=== PATIENT | female | born 1960 | race Caucasian/White ===

== ENCOUNTER 2016-06-05 11:50 | Inpatient (IN) | payer OTHER ==
[~2016-06-05] VITALS: Ht 149.9 cm; Wt 99.9 kg
[~2016-06-05 11:50] MED LIST: ACIPHEX20 MG PO; ALDACTONE100 MG PO; ALUM-MAG HYDRO360 ML PO; AMLODIPINE BES2.5 MG PO; ATORVASTATIN CA40 MG PO; Aldactone PO; CEFDINIR300 MG PO; CEFTIN500 MG PO; CEPHALEXIN500 M1 PO; CLEOCIN300 MG PO; CLINDAMYCIN HC150 MG PO; COL-RITE100 M1 PO; COLACE10 MG/ML PO; CONSTULOSE10 GM/15 M PO; Chronulac,Cephulac,E PO; Chronulac,Cephulac,Enulose 20 gm/30 ml PO; DAILY VITAMIN1 EAC5 PO; DOCU LIQUI50 MG/5 ML PO; DuoNeb IH; ENULOSE10 GM/15 M PO; ERGOCALCIF50000 UNIT PO; FEOSOL325 MG PO; FERROUS SULFAT325 MG PO; FLORASTOR250 MG PO; FUROSEMIDE40 MG PO; GABAPENTIN300 MG PO; GENERLAC10 GM/15 M PO; GLUCO BURST37.5 GM PO; GLUCOSE GEL15 GM PO; HUMALOG100 UNIT/1 SC; HYDROCHLOROTHIA25 MG PO; HYDROCODONE PO; K-DUR20 MEQ PO; KLOR-CON20 MEQ PO; LACTULOSE10 GM/151 PO; LANTUS 10100 UNITS/ SC; LANTUS 3 M100 UNITS1 SC; LANTUS100 UNIT/2 SQ; LASIX20 MG PO; LASIX40 MG PO; LEVEMIR FL100 UNIT/1 SC; LEVOTHROID50 MCG PO; LEVOTHYROXINE125 MCG PO; LEVOTHYROXINE25 MCG PO; LIPITOR40 MG PO; LISINOPRIL5 MG PO; LYRICA50 MG PO; Lasix PO; Lipitor PO; METFORMIN HCL500 MG PO; NAPROXEN250 M1 PO; NORVASC2.5 MG PO; NOVOLOG 10100 UNITS/ SC; NOVOLOG PE100 UNITS/ SC; NYSTATIN-TRIAMC15 GM TP; OXAYDO5 MG PO; PANTOPRAZOLE SO40 MG PO; PHENERGAN25 MG PR; POTASSIUM CHLO20 ME1 PO; PROAIR HFA8.5 GM IH; PROMETHAZINE HC25 M1 PO; PROTONIX40 MG PO; Protonix PO; SILVADENE20 GM TP; SIMVASTATIN5 MG PO; SODIUM CHLORIDE1 G1 PO; SORE THROAT SP177 M1 MM; SPIRONOLACTONE100 MG PO; SPIRONOLACTONE50 MG PO; SYNTHROID100 MCG PO; SYNTHROID125 MCG PO; TRAMADOL HCL50 MG PO; TUMS500 MG PO; TYLENOL REGULA325 MG PO; Ultram PO; VICTOZA 2-0.6 MG/0.1 SC; VITAMIN D250000 UNIT PO; XIFAXAN550 MG PO; Xifaxan PO; ZESTRIL,PRINIVI10 MG PO; ZOCOR40 MG PO; Zeasorb Antifungal T TP; Zestril,Prinivil PO
[2016-06-05 12:44] LABS: MCH 36.1 PG (29.0-34.0); MCHC 35.3 G/DL (30.0-36.0); MCV 102.3 FL (83-99); MEAN PLAT.VOLUME 9.9 uM^3 (9.5-12.4); PLATELET COUNT 106 K/uL (156-360); RBC DIS.WIDTH-CV 15.7 % (11.8-14.6); RBC DIS.WIDTH-SD 57.3 % (39-53); RED BLOOD COUNT 3.52 M/uL (3.80-5.20); WHITE BLOOD COUNT 3.2 K/uL (4.1-10.2)
[2016-06-05 12:56] LABS: CHLORIDE 104 mEq/L (99-109); POTASSIUM 4.6 mEq/L (3.7-5.4); SODIUM 135 mEq/L (136-147)
[2016-06-05 12:57] LABS: GLUCOSE 127 mg/dL (70-99)
[2016-06-05 12:59] LABS: ANION GAP 9 MEQ/L (2-14)
[2016-06-05 13:01] LABS: GFR ESTIMATE (CALCULATED) 41 mL/min/
[2016-06-05 13:02] LABS: UREA NITROGEN (BUN) 14 mg/dL (9-23)
[2016-06-05 13:09] LABS: QUANTITATIVE HCG < 4.0 MIU/ML
[2016-06-05 13:14] LABS: TROP-I INTERPRETATION NEGATIVE; TROPONIN-I < 0.01 ng/mL (0.0-0.30)
[2016-06-05] MEDS ORDERED: VITAMIN A DAY1 EACH PO (14:43)
[2016-06-05] MEDS ORDERED: LACTULOSE10 GM/151 PO (14:47)
[2016-06-05] MEDS ORDERED: NYSTATIN100000 UN1 PO (14:49)
[2016-06-05] MEDS ORDERED: GLUCOSE GEL15 GM PO (14:58)
[2016-06-05 17:55] LABS: ADD MIUA? YES; BILIRUBIN NEGATIVE; BLOOD TRACE; COLOR DK YELLOW ((YELLOW)); GLUCOSE (STRIP) NEGATIVE; KETONES NEGATIVE; LEUKOCYTES SMALL; NITRITE NEGATIVE; PROTEIN (STRIP) NEGATIVE; SPECIFIC GRAVITY 1.021 (1.000-1.030); UROBILINOGEN 0.2 MG/DL (0.2-1.0)
[2016-06-05 18:12] LABS: BACTERIA 2+; CASTS NONE SEEN /LPF; CRYSTALS NONE SEEN; EPITHELIAL CELLS 1+; MUCUS NONE SEEN; RED BLOOD CELLS RARE /HPF (0-5); UCUL ADDED? NO; WHITE BLOOD CELLS RARE /HPF (0-5)
[2016-06-05 21:24] VITALS: BP 128/69
[2016-06-05 23:34] VITALS: BP 137/69
[2016-06-06 04:23] VITALS: BP 146/87
[2016-06-06 07:52] VITALS: BP 117/58
[2016-06-06 11:50] LABS: POINT-OF-CARE METER ID UU13113725
[2016-06-06 14:35] LABS: ALKALINE PHOSPHATASE 298 IU/L (3-129); ANION GAP 10 MEQ/L (2-14); CHLORIDE 100 MEQ/L (99-109); GFR ESTIMATE (CALCULATED) 45 mL/min/; GLUCOSE 101 mg/dL (70-99); IRON 149 MCG/DL (35-150); POTASSIUM 4.7 MEQ/L (3.7-5.4); SAMPLE HEMOLYSIS CHECK 0; SAMPLE ICTERIC CHECK 1; SAMPLE LIPEMIA CHECK 0; SODIUM 134 MEQ/L (136-147); TOTAL BILIRUBIN 4.9 MG/DL (0.0-1.0); UREA NITROGEN (BUN) 15 mg/dL (9-23)
[2016-06-06 14:44] LABS: EOSINOPHIL COUNT 0.1 K/uL (0-0.3); HEMATOCRIT 33.7 % (36.0-46.0); IMMATURE GRANULOCYTE (%) 0.9 % (0.0-0.7); LYMPHOCYTE COUNT 0.5 K/uL (1.0-2.8); MCH 35.9 PG (29.0-34.0); MCV 102.4 FL (83-99); MEAN PLAT.VOLUME 10.8 uM^3 (9.5-12.4); MONOCYTE (%) 9.4 % (3-12); MONOCYTE COUNT 0.2 K/uL (0-0.8); NEUTROPHIL (%) 64.7 % (45-76); NEUTROPHIL COUNT 1.5 K/uL (1.8-6.4); NRBC (%) 0.9 /100 WBC (0-0); PLATELET COUNT 132 K/uL (156-360); RBC DIS.WIDTH-SD 60.1 % (39-53); RED BLOOD COUNT 3.29 M/uL (3.80-5.20); WHITE BLOOD COUNT 2.2 K/uL (4.1-10.2)
[2016-06-06 14:48] LABS: AMYLASE 16 IU/L (1-118); LIPASE 17 U/L (1.0-51.0)
[2016-06-06 14:53] LABS: FERRITIN 274 NG/ML (10-291)
[2016-06-06 16:03] VITALS: BP 138/65
[2016-06-06 23:28] VITALS: BP 113/59
[2016-06-07 06:08] LABS: POINT-OF-CARE METER ID UU13113725
[2016-06-07 07:18] VITALS: BP 123/59
[2016-06-07 09:43] LABS: HEMATOCRIT 31.9 % (36.0-46.0); MCH 35.5 PG (29.0-34.0); MCHC 34.8 G/DL (30.0-36.0); MCV 101.9 FL (83-99); MEAN PLAT.VOLUME 10.2 uM^3 (9.5-12.4); PLATELET COUNT 110 K/uL (156-360); RBC DIS.WIDTH-CV 15.8 % (11.8-14.6); RBC DIS.WIDTH-SD 59.2 % (39-53); RED BLOOD COUNT 3.13 M/uL (3.80-5.20)
[2016-06-07 10:34] LABS: ALKALINE PHOSPHATASE 277 IU/L (3-129); ANION GAP 7 MEQ/L (2-14); CHLORIDE 101 MEQ/L (99-109); GFR ESTIMATE (CALCULATED) 41 mL/min/; GLUCOSE 80 mg/dL (70-99); POTASSIUM 4.2 MEQ/L (3.7-5.4); SAMPLE HEMOLYSIS CHECK 0; SAMPLE ICTERIC CHECK 1; SAMPLE LIPEMIA CHECK 0; SODIUM 133 MEQ/L (136-147); UREA NITROGEN (BUN) 17 mg/dL (9-23)
[2016-06-07 10:36] LABS: TOTAL BILIRUBIN 3.6 MG/DL (0.0-1.0)
[2016-06-07 11:56] LABS: POINT-OF-CARE METER ID UU13113725
[2016-06-07 14:04] LABS: ADD MIUA? NO; BILIRUBIN NEGATIVE; BLOOD NEGATIVE; COLOR YELLOW ((YELLOW)); GLUCOSE (STRIP) NEGATIVE; KETONES NEGATIVE; LEUKOCYTES NEGATIVE; NITRITE NEGATIVE; PH, URINE 7.5 (5-8); PROTEIN (STRIP) NEGATIVE; SPECIFIC GRAVITY 1.007 (1.000-1.030); UROBILINOGEN 0.2 MG/DL (0.2-1.0)
[2016-06-07 15:54] LABS: TYPE OF FLUID PERITONEAL
[2016-06-07 16:04] LABS: BODY FLUID RBC'S < 1000 /MM^3 (0-100); BODY FLUID WBC'S 93 /MM^3 (0-500)
[2016-06-07 16:21] LABS: BODY FLUID EOSINOPHILS 0 % (0-25); MONO RAW COUNT 89; MONONUCLEAR WBC'S 89 %; POLY RAW COUNT 11; POLYNUCLEAR WBC'S 11 % (0-25)
[2016-06-07 16:38] VITALS: BP 123/74
[2016-06-07 23:32] VITALS: BP 127/69
[2016-06-08 06:43] LABS: HEMATOCRIT 32.9 % (36.0-46.0); MCH 34.9 PG (29.0-34.0); MCHC 34.3 G/DL (30.0-36.0); MCV 101.5 FL (83-99); MEAN PLAT.VOLUME 10.4 uM^3 (9.5-12.4); PLATELET COUNT 125 K/uL (156-360); RBC DIS.WIDTH-CV 15.9 % (11.8-14.6); RBC DIS.WIDTH-SD 59.2 % (39-53); RED BLOOD COUNT 3.24 M/uL (3.80-5.20); WHITE BLOOD COUNT 2.4 K/uL (4.1-10.2)
[2016-06-08 07:08] LABS: ANION GAP 8 MEQ/L (2-14); CHLORIDE 102 MEQ/L (99-109); GFR ESTIMATE (CALCULATED) 36 mL/min/; SAMPLE HEMOLYSIS CHECK 0; SAMPLE ICTERIC CHECK 0; SAMPLE LIPEMIA CHECK 0; SODIUM 134 MEQ/L (136-147); UREA NITROGEN (BUN) 19 mg/dL (9-23)
[2016-06-08 07:17] LABS: GLUCOSE 121 mg/dL (70-99)
[2016-06-08 08:16] VITALS: BP 133/64
[2016-06-08 16:32] VITALS: BP 137/66
[2016-06-08 16:50] LABS: POINT-OF-CARE METER ID UU13113725
[2016-06-08 23:49] VITALS: BP 136/66
[2016-06-09 06:01] LABS: POINT-OF-CARE METER ID UU13113725
[2016-06-09 07:14] VITALS: BP 117/65
[2016-06-09 07:15] LABS: HEMATOCRIT 35.8 % (36.0-46.0); MCH 34.7 PG (29.0-34.0); MCHC 34.1 G/DL (30.0-36.0); MCV 101.7 FL (83-99); MEAN PLAT.VOLUME 10.7 uM^3 (9.5-12.4); PLATELET COUNT 124 K/uL (156-360); RBC DIS.WIDTH-CV 15.8 % (11.8-14.6); RBC DIS.WIDTH-SD 58.8 % (39-53); RED BLOOD COUNT 3.52 M/uL (3.80-5.20); WHITE BLOOD COUNT 2.8 K/uL (4.1-10.2)
[2016-06-09 07:41] LABS: ALKALINE PHOSPHATASE 305 IU/L (3-129); ANION GAP 7 MEQ/L (2-14); CHLORIDE 102 MEQ/L (99-109); GFR ESTIMATE (CALCULATED) 36 mL/min/; GLUCOSE 96 mg/dL (70-99); POTASSIUM 4.1 MEQ/L (3.7-5.4); SAMPLE HEMOLYSIS CHECK 0; SAMPLE ICTERIC CHECK 0; SAMPLE LIPEMIA CHECK 0; SODIUM 134 MEQ/L (136-147); UREA NITROGEN (BUN) 18 mg/dL (9-23)
[2016-06-09 17:08] VITALS: BP 142/67
[2016-06-09 17:41] LABS: POINT-OF-CARE METER ID UU13113725
[2016-06-09 21:22] LABS: POINT-OF-CARE METER ID UU13113725
[2016-06-09 23:44] VITALS: BP 122/68
[2016-06-10 06:00] LABS: POINT-OF-CARE METER ID UU13113725
[2016-06-10 07:00] VITALS: BP 123/72
[2016-06-10 07:17] LABS: HEMATOCRIT 35.9 % (36.0-46.0); MCH 35.8 PG (29.0-34.0); MCHC 35.4 G/DL (30.0-36.0); MCV 101.1 FL (83-99); MEAN PLAT.VOLUME 10.5 uM^3 (9.5-12.4); PLATELET COUNT 127 K/uL (156-360); RBC DIS.WIDTH-CV 15.6 % (11.8-14.6); RBC DIS.WIDTH-SD 57.7 % (39-53); RED BLOOD COUNT 3.55 M/uL (3.80-5.20); WHITE BLOOD COUNT 3.2 K/uL (4.1-10.2)
[2016-06-10 07:41] LABS: ALKALINE PHOSPHATASE 281 IU/L (3-129); ANION GAP 9 MEQ/L (2-14); CHLORIDE 102 MEQ/L (99-109); GFR ESTIMATE (CALCULATED) 45 mL/min/; GLUCOSE 106 mg/dL (70-99); POTASSIUM 3.9 MEQ/L (3.7-5.4); SAMPLE HEMOLYSIS CHECK 0; SAMPLE ICTERIC CHECK 0; SAMPLE LIPEMIA CHECK 0; SODIUM 135 MEQ/L (136-147); TOTAL BILIRUBIN 2.9 MG/DL (0.0-1.0); UREA NITROGEN (BUN) 17 mg/dL (9-23)
[2016-06-10 08:10] VITALS: BP 125/64
[2016-06-10 11:00] VITALS: BP 155/73
[2016-06-10] MEDS ORDERED: Chronulac,Cephulac,E PO (14:29)
[2016-06-10] MEDS ORDERED: NOVOLOG PE100 UNITS/ SC (14:31)
[2016-06-10 15:00] VITALS: BP 146/74
[2016-06-10 15:55] VITALS: BP 119/62
== END 2016-06-10 17:54 | DRG 442 ==
LOC: EME → EDBD 11:50 → EME 11:50 → 5EAST 20:10 → EDOF 20:10 → 5EAST 20:56
PROVIDERS: Emergency Medicine; Internal Medicine
PROC: 0D9W30Z Drainage of Peritoneum with Drainage Device, Percutaneous Approach (ICD-10-PCS; principal; 2016-06-07)
DX: K72.91 Hepatic failure, unspecified with coma (principal); K75.81 Nonalcoholic steatohepatitis (NASH); K74.60 Unspecified cirrhosis of liver; I85.00 Esophageal varices without bleeding; R18.8 Other ascites; N39.0 Urinary tract infection, site not specified; E11.65 Type 2 diabetes mellitus with hyperglycemia; E86.0 Dehydration; E66.01 Morbid (severe) obesity due to excess calories; Z68.41 Body mass index [BMI] 40.0-44.9, adult; I12.9 Hypertensive chronic kidney disease with stage 1 through stage 4 chronic kidney disease, or unspecified chronic kidney disease; N18.9 Chronic kidney disease, unspecified; E03.9 Hypothyroidism, unspecified; E78.5 Hyperlipidemia, unspecified; T47.3X6A Underdosing of saline and osmotic laxatives, initial encounter; Z91.128 Patient's intentional underdosing of medication regimen for other reason; Z79.4 Long term (current) use of insulin
CPT/HCPCS: 71010; 80048; 80053; 81003; 82140; 82150; 82607; 82728; 82746; 82948; 83540; 83690; 84439; 84443; 84466; 84484; 84702; 85025; 85027; 87070; 87086; 87205; 89051; 93005; 99281; 99285; J0696; J1650; J1815; J7050

== ENCOUNTER → 2016-06-17 | Outpatient (CLI) | payer OTHER ==
[~2016-06-17] MED LIST changes: +NYSTATIN100000 UN1 PO; +VITAMIN A DAY1 EACH PO
== END ==
LOC: RAD 07:50 → EDSTATUS 08:15 → RAD 08:15
DX: R18.8 Other ascites (principal); K74.60 Unspecified cirrhosis of liver; Z53.8 Procedure and treatment not carried out for other reasons
CPT/HCPCS: 76705

== ENCOUNTER 2016-06-21 15:09 | Inpatient (IN) | payer OTHER ==
[~2016-06-21] VITALS: Ht 160 cm; Wt 93.8 kg
[2016-06-21 15:46] LABS: HEMATOCRIT 31.4 % (36.0-46.0); MCH 35.6 PG (29.0-34.0); MCHC 34.4 G/DL (30.0-36.0); MCV 103.6 FL (83-99); MEAN PLAT.VOLUME 11.2 uM^3 (9.5-12.4); PLATELET COUNT 100 K/uL (156-360); RBC DIS.WIDTH-CV 14.5 % (11.8-14.6); RBC DIS.WIDTH-SD 52.9 % (39-53); RED BLOOD COUNT 3.03 M/uL (3.80-5.20); WHITE BLOOD COUNT 3.4 K/uL (4.1-10.2)
[2016-06-21 15:54] LABS: CHLORIDE 99 mEq/L (99-109); POTASSIUM 5.2 mEq/L (3.7-5.4); SODIUM 131 mEq/L (136-147)
[2016-06-21 15:56] LABS: GLUCOSE 137 mg/dL (70-99)
[2016-06-21 15:57] LABS: ANION GAP 6 MEQ/L (2-14)
[2016-06-21 15:59] LABS: GFR ESTIMATE (CALCULATED) 50 mL/min/
[2016-06-21 16:00] LABS: UREA NITROGEN (BUN) 21 mg/dL (9-23)
[2016-06-21 16:11] LABS: ADD MIUA? YES; BILIRUBIN NEGATIVE; BLOOD MODERATE; COLOR YELLOW ((YELLOW)); GLUCOSE (STRIP) NEGATIVE; KETONES NEGATIVE; LEUKOCYTES NEGATIVE; NITRITE NEGATIVE; PH, URINE 6.5 (5-8); PROTEIN (STRIP) NEGATIVE; SPECIFIC GRAVITY 1.018 (1.000-1.030); UROBILINOGEN 0.2 MG/DL (0.2-1.0)
[2016-06-21 16:32] LABS: BACTERIA NONE SEEN /HPF; CASTS NONE SEEN /LPF; CRYSTALS NONE SEEN; EPITHELIAL CELLS RARE /HPF; MUCUS NONE SEEN /LPF; PATHOLOGICAL CAST NONE SEEN; RED BLOOD CELLS 0-5 /HPF (0-5); SMALL ROUND CELL NONE SEEN; UCUL ADDED? NO; WHITE BLOOD CELLS 0-5 /HPF (0-5); YEAST-LIKE CELL NONE SEEN
[2016-06-21 16:58] LABS: INTER. NORMALIZED RATIO 1.2; PROTHROMBIN TIME 12.5 (9.2-11.2); PTT 31.2 (25-32); TOTAL BILIRUBIN 3.3 mg/dL (0.0-1.0)
[2016-06-21 16:59] LABS: ALKALINE PHOSPHATASE 278 IU/L (3-129)
[2016-06-21 17:02] LABS: DIRECT BILIRUBIN 2.2 mg/dL (0.0-0.3)
[2016-06-21 17:03] LABS: LIPASE 66 U/L (1.0-51.0)
[2016-06-21] MEDS ORDERED: ENULOSE10 GM/15 M PO (21:44)
[2016-06-21] MEDS ORDERED: NOVOLOG PE100 UNITS/ SC (21:44)
[2016-06-21] MEDS ORDERED: LEVOTHYROXINE150 MCG PO (21:44)
[2016-06-21 22:20] VITALS: BP 120/54
[2016-06-22 01:53] LABS: METH RESISTANT S AUREUS PCR NEGATIVE (NEGATIVE)
[2016-06-22 02:01] LABS: PROBE CHECK PASS; SPECIMEN PROCESSING CONTROL PASS
[2016-06-22 03:03] VITALS: BP 133/68
[2016-06-22 09:20] VITALS: BP 132/61
[2016-06-22 12:00] VITALS: BP 110/44
[2016-06-22 16:22] VITALS: BP 122/57
[2016-06-22 19:39] VITALS: BP 134/63
[2016-06-22 23:59] VITALS: BP 146/68
[2016-06-23 03:15] VITALS: BP 124/60
[2016-06-23 07:02] LABS: HEMATOCRIT 33.3 % (36.0-46.0); MCH 35.7 PG (29.0-34.0); MCHC 34.2 G/DL (30.0-36.0); MCV 104.4 FL (83-99); MEAN PLAT.VOLUME 10.6 uM^3 (9.5-12.4); PLATELET COUNT 111 K/uL (156-360); RBC DIS.WIDTH-CV 15.2 % (11.8-14.6); RBC DIS.WIDTH-SD 58.3 % (39-53); RED BLOOD COUNT 3.19 M/uL (3.80-5.20); WHITE BLOOD COUNT 3.1 K/uL (4.1-10.2)
[2016-06-23 07:33] LABS: ALKALINE PHOSPHATASE 270 IU/L (3-129); ANION GAP 7 MEQ/L (2-14); CHLORIDE 103 MEQ/L (99-109); GFR ESTIMATE (CALCULATED) 45 mL/min/; GLUCOSE 133 mg/dL (70-99); SAMPLE HEMOLYSIS CHECK 0; SAMPLE ICTERIC CHECK 0; SAMPLE LIPEMIA CHECK 0; SODIUM 136 MEQ/L (136-147); UREA NITROGEN (BUN) 18 mg/dL (9-23)
[2016-06-23 07:36] LABS: POTASSIUM 3.8 MEQ/L (3.7-5.4)
[2016-06-23 08:00] VITALS: BP 120/60
[2016-06-23 08:14] LABS: POINT-OF-CARE METER ID UU14174216; POINT-OF-CARE USER ID ENVKC36
[2016-06-23 11:29] LABS: POINT-OF-CARE METER ID UU14174216
[2016-06-23 12:46] VITALS: BP 121/66
[2016-06-23 15:27] VITALS: BP 137/64
[2016-06-23 19:59] VITALS: BP 122/58
[2016-06-24 00:09] LABS: POINT-OF-CARE METER ID UU14174216
[2016-06-24 04:26] VITALS: BP 124/58
[2016-06-24 07:20] VITALS: BP 141/67
[2016-06-24 11:14] LABS: POINT-OF-CARE USER ID NUTSLF44
[2016-06-24 11:35] VITALS: BP 121/60
[2016-06-24 14:45] VITALS: BP 112/65
[2016-06-24 19:20] VITALS: BP 143/76
[2016-06-24 22:00] VITALS: BP 103/56
[2016-06-25] MEDS ORDERED: IBUPROFEN400 MG PO (01:42)
[2016-06-25 07:43] LABS: HEMATOCRIT 31.8 % (36.0-46.0); MCH 35.8 PG (29.0-34.0); MCHC 35.2 G/DL (30.0-36.0); MCV 101.6 FL (83-99); MEAN PLAT.VOLUME 10.4 uM^3 (9.5-12.4); PLATELET COUNT 92 K/uL (156-360); RBC DIS.WIDTH-CV 14.7 % (11.8-14.6); RBC DIS.WIDTH-SD 54.5 % (39-53); RED BLOOD COUNT 3.13 M/uL (3.80-5.20); WHITE BLOOD COUNT 2.8 K/uL (4.1-10.2)
[2016-06-25 08:10] VITALS: BP 139/72
[2016-06-25 08:18] LABS: ALKALINE PHOSPHATASE 231 IU/L (3-129); ANION GAP 7 MEQ/L (2-14); CHLORIDE 100 MEQ/L (99-109); GFR ESTIMATE (CALCULATED) 50 mL/min/; GLUCOSE 151 mg/dL (70-99); POTASSIUM 3.8 MEQ/L (3.7-5.4); SAMPLE HEMOLYSIS CHECK 0; SAMPLE ICTERIC CHECK 0; SAMPLE LIPEMIA CHECK 0; SODIUM 131 MEQ/L (136-147); TOTAL BILIRUBIN 2.9 MG/DL (0.0-1.0); UREA NITROGEN (BUN) 12 mg/dL (9-23)
== END 2016-06-25 15:11 | DRG 442 ==
LOC: EME 15:09 → 4EAST 21:25 → EDOF 21:25 → 4EAST 22:10 → 5EAST 06-24 20:40
PROVIDERS: Emergency Medicine; Internal Medicine
PROC: 0W9G3ZZ Drainage of Peritoneal Cavity, Percutaneous Approach (ICD-10-PCS; principal; 2016-06-23)
PROC: 0W9G3ZZ Drainage of Peritoneal Cavity, Percutaneous Approach (ICD-10-PCS; 2016-06-25)
DX: K72.91 Hepatic failure, unspecified with coma (principal); R18.8 Other ascites; Z68.41 Body mass index [BMI] 40.0-44.9, adult; E87.1 Hypo-osmolality and hyponatremia; D61.818 Other pancytopenia; J98.11 Atelectasis; I85.00 Esophageal varices without bleeding; K75.81 Nonalcoholic steatohepatitis (NASH); E66.01 Morbid (severe) obesity due to excess calories; Z91.128 Patient's intentional underdosing of medication regimen for other reason; E11.65 Type 2 diabetes mellitus with hyperglycemia; K74.60 Unspecified cirrhosis of liver; N18.3 Chronic kidney disease, stage 3 (moderate); I12.9 Hypertensive chronic kidney disease with stage 1 through stage 4 chronic kidney disease, or unspecified chronic kidney disease; E03.9 Hypothyroidism, unspecified; E11.22 Type 2 diabetes mellitus with diabetic chronic kidney disease; E78.5 Hyperlipidemia, unspecified; K42.9 Umbilical hernia without obstruction or gangrene; F70 Mild intellectual disabilities
CPT/HCPCS: 70450; 71010; 80048; 80053; 80076; 81003; 82140; 82948; 83605; 83690; 85027; 85610; 85730; 87070; 87205; 87641; 92526 GN; 92610 GN; 93005; 99281; 99285; J1650; J1815

== ENCOUNTER 2016-07-06 12:21 | Inpatient (IN) | payer OTHER ==
[~2016-07-06] VITALS: Ht 162.6 cm; Wt 90.8 kg
[~2016-07-06 12:21] MED LIST changes: +IBUPROFEN400 MG PO; +LEVOTHYROXINE150 MCG PO
[2016-07-06 12:53] LABS: BASOPHIL COUNT 0.1 K/uL (0-0.1); EOSINOPHIL (%) 2.4 % (0-5); EOSINOPHIL COUNT 0.1 K/uL (0-0.3); HEMATOCRIT 34.1 % (36.0-46.0); IMMATURE GRANULOCYTE (%) 0.8 % (0.0-0.7); IMMATURE GRANULOCYTE COUNT 0.4 K/uL; LYMPHOCYTE COUNT 0.9 K/uL (1.0-2.8); MCH 35.3 PG (29.0-34.0); MCHC 34.6 G/DL (30.0-36.0); MCV 102.1 FL (83-99); MONOCYTE (%) 8.2 % (3-12); MONOCYTE COUNT 0.4 K/uL (0-0.8); NEUTROPHIL (%) 70.9 % (45-76); NEUTROPHIL COUNT 3.6 K/uL (1.8-6.4); PLATELET COUNT 140 K/uL (156-360); RBC DIS.WIDTH-CV 14.5 % (11.8-14.6); RBC DIS.WIDTH-SD 52.4 % (39-53); RED BLOOD COUNT 3.34 M/uL (3.80-5.20); WHITE BLOOD COUNT 5.1 K/uL (4.1-10.2)
[2016-07-06 12:56] LABS: CHLORIDE 100 mEq/L (99-109); POTASSIUM 4.4 mEq/L (3.7-5.4); SODIUM 130 mEq/L (136-147)
[2016-07-06 12:57] LABS: INTER. NORMALIZED RATIO 1.2; PROTHROMBIN TIME 12.1 (9.2-11.2)
[2016-07-06 12:58] LABS: GLUCOSE 111 mg/dL (70-99)
[2016-07-06 12:59] LABS: ANION GAP 6 MEQ/L (2-14)
[2016-07-06 13:00] LABS: TOTAL BILIRUBIN 2.6 mg/dL (0.0-1.0)
[2016-07-06 13:02] LABS: ALKALINE PHOSPHATASE 340 IU/L (3-129); GFR ESTIMATE (CALCULATED) 45 mL/min/
[2016-07-06 13:03] LABS: UREA NITROGEN (BUN) 23 mg/dL (9-23)
[2016-07-06 15:16] LABS: POINT-OF-CARE METER ID UU13113702
[2016-07-06] MEDS ORDERED: GLUCOSE GEL15 GM PO (15:38)
[2016-07-06 20:56] VITALS: BP 154/67
[2016-07-07 00:21] VITALS: BP 120/56
[2016-07-07 04:27] VITALS: BP 109/55
[2016-07-07 08:19] VITALS: BP 122/64
[2016-07-07 12:18] VITALS: BP 137/66
[2016-07-07 15:00] VITALS: BP 136/98
[2016-07-08] VITALS (7 sets, daily range): BP systolic 122–145; BP diastolic 58–72
[2016-07-08 00:21] LABS: POINT-OF-CARE METER ID UU14149398
[2016-07-08 06:23] LABS: HEMATOCRIT 35.8 % (36.0-46.0); MCH 36.8 PG (29.0-34.0); MCHC 35.8 G/DL (30.0-36.0); MCV 102.9 FL (83-99); MEAN PLAT.VOLUME 10.4 uM^3 (9.5-12.4); PLATELET COUNT 137 K/uL (156-360); RBC DIS.WIDTH-CV 14.8 % (11.8-14.6); RBC DIS.WIDTH-SD 55.7 % (39-53); RED BLOOD COUNT 3.48 M/uL (3.80-5.20); WHITE BLOOD COUNT 4.6 K/uL (4.1-10.2)
[2016-07-08 06:54] LABS: ALKALINE PHOSPHATASE 302 IU/L (3-129); ANION GAP 7 MEQ/L (2-14); CHLORIDE 104 MEQ/L (99-109); GFR ESTIMATE (CALCULATED) 45 mL/min/; GLUCOSE 130 mg/dL (70-99); SAMPLE HEMOLYSIS CHECK 0; SAMPLE ICTERIC CHECK 0; SAMPLE LIPEMIA CHECK 0; SODIUM 134 MEQ/L (136-147); TOTAL BILIRUBIN 2.9 MG/DL (0.0-1.0); UREA NITROGEN (BUN) 17 mg/dL (9-23)
[2016-07-08 06:57] LABS: POTASSIUM 3.5 MEQ/L (3.7-5.4)
[2016-07-08 08:42] LABS: POINT-OF-CARE METER ID UU13113807
[2016-07-08 11:42] LABS: POINT-OF-CARE METER ID UU13113807
[2016-07-08 17:17] LABS: POINT-OF-CARE METER ID UU14149398
[2016-07-08 21:53] LABS: POINT-OF-CARE METER ID UU14149398
[2016-07-09] VITALS: BP 105/50
[2016-07-09 04:18] VITALS: BP 119/56
[2016-07-09 08:03] VITALS: BP 110/64
[2016-07-09 08:20] LABS: POINT-OF-CARE METER ID UU14149396
[2016-07-09 11:26] VITALS: BP 145/69
[2016-07-09] MEDS ORDERED: Tums,OsCal PO (11:35)
[2016-07-09 11:50] LABS: POINT-OF-CARE METER ID UU14149396
== END 2016-07-09 14:29 | DRG 442 ==
LOC: EME → EDBD 12:21 → 4SOUTH 17:03 → EDOF 17:03 → 4SOUTH 20:19
PROVIDERS: Emergency Medicine; Internal Medicine
PROC: 0W9G3ZZ Drainage of Peritoneal Cavity, Percutaneous Approach (ICD-10-PCS; principal; 2016-07-08)
DX: K72.90 Hepatic failure, unspecified without coma (principal); K74.60 Unspecified cirrhosis of liver; E87.1 Hypo-osmolality and hyponatremia; R18.8 Other ascites; E11.22 Type 2 diabetes mellitus with diabetic chronic kidney disease; I12.9 Hypertensive chronic kidney disease with stage 1 through stage 4 chronic kidney disease, or unspecified chronic kidney disease; N18.3 Chronic kidney disease, stage 3 (moderate); E03.9 Hypothyroidism, unspecified; E78.5 Hyperlipidemia, unspecified; E11.65 Type 2 diabetes mellitus with hyperglycemia; J45.909 Unspecified asthma, uncomplicated; E66.01 Morbid (severe) obesity due to excess calories; Z91.14 Patient's other noncompliance with medication regimen; Z68.34 Body mass index [BMI] 34.0-34.9, adult; Z79.4 Long term (current) use of insulin
CPT/HCPCS: 71010; 71020; 80053; 82140; 82948; 85025; 85027; 85610; 87070; 87075; 87205; 99281; 99285; J1650; J1815

== ENCOUNTER → 2016-07-22 | Outpatient (CLI) | payer OTHER ==
[~2016-07-22] MED LIST changes: +DELTASONE20 M1 PO; +DUONEB 2.5-0.5 M3 ML AEROSOL; +FEROSUL325 MG PO; +KLOR-CON 1010 ME1 PO; +NEURONTIN300 MG PO; +Tums,OsCal PO
== END ==
LOC: RAD 06-10 08:15 → EDSTATUS 06-10 13:15 → RAD 06-10 13:15 → EDSTATUS 08:15
DX: R18.8 Other ascites (principal); Z53.8 Procedure and treatment not carried out for other reasons
CPT/HCPCS: 76705

== ENCOUNTER 2016-08-01 17:52 | Inpatient (IN) | payer OTHER ==
[~2016-08-01] VITALS: Ht 147.3 cm; Wt 103.4 kg
[~2016-08-01 17:52] MED LIST changes: -DELTASONE20 M1 PO; -DUONEB 2.5-0.5 M3 ML AEROSOL; -FEROSUL325 MG PO; -KLOR-CON 1010 ME1 PO; -NEURONTIN300 MG PO
[2016-08-01 18:48] LABS: BILIRUBIN NEGATIVE; BLOOD NEGATIVE; COLOR YELLOW ((YELLOW)); GLUCOSE (STRIP) NEGATIVE; KETONES NEGATIVE; LEUKOCYTES NEGATIVE; NITRITE NEGATIVE; PROTEIN (STRIP) NEGATIVE; SPECIFIC GRAVITY 1.009 (1.000-1.030); UROBILINOGEN 0.2 MG/DL (0.2-1.0)
[2016-08-01 18:49] LABS: ADD MIUA? NO; UCUL ADDED? NO
[2016-08-01 19:10] LABS: EOSINOPHIL (%) 0.5 % (0-5); HEMATOCRIT 35.1 % (36.0-46.0); IMMATURE GRANULOCYTE (%) 1.4 % (0.0-0.7); INSTRUMENT ABS NEUTROPHIL CT 1.7 K/uL; LYMPHOCYTE COUNT 0.4 K/uL (1.0-2.8); MCH 35.1 PG (29.0-34.0); MCHC 33.9 G/DL (30.0-36.0); MCV 103.5 FL (83-99); MEAN PLAT.VOLUME 10.4 uM^3 (9.5-12.4); MONOCYTE (%) 5.9 % (3-12); MONOCYTE COUNT 0.1 K/uL (0-0.8); NEUTROPHIL (%) 75.9 % (45-76); NEUTROPHIL COUNT 1.7 K/uL (1.8-6.4); PLATELET COUNT 110 K/uL (156-360); RBC DIS.WIDTH-CV 14.5 % (11.8-14.6); RBC DIS.WIDTH-SD 54.8 % (39-53); RED BLOOD COUNT 3.39 M/uL (3.80-5.20)
[2016-08-01 19:11] LABS: WHITE BLOOD COUNT 2.2 K/uL (4.1-10.2)
[2016-08-01 19:21] LABS: CHLORIDE 102 mEq/L (99-109); POTASSIUM 5.3 mEq/L (3.7-5.4); SODIUM 132 mEq/L (136-147)
[2016-08-01 19:23] LABS: GLUCOSE 197 mg/dL (70-99)
[2016-08-01 19:24] LABS: ANION GAP 7 MEQ/L (2-14)
[2016-08-01 19:25] LABS: TOTAL BILIRUBIN 2.4 mg/dL (0.0-1.0)
[2016-08-01 19:26] LABS: ALKALINE PHOSPHATASE 455 IU/L (3-129)
[2016-08-01 19:27] LABS: GFR ESTIMATE (CALCULATED) 45 mL/min/
[2016-08-01 19:28] LABS: UREA NITROGEN (BUN) 17 mg/dL (9-23)
[2016-08-01] MEDS ORDERED: NEURONTIN300 MG PO (20:12)
[2016-08-01] MEDS ORDERED: KLOR-CON 1010 ME1 PO (20:13)
[2016-08-01] MEDS ORDERED: NORVASC2.5 MG PO (20:18)
[2016-08-01] MEDS ORDERED: DELTASONE20 M1 PO (20:20)
[2016-08-01] MEDS ORDERED: FEROSUL325 MG PO (20:21)
[2016-08-01] MEDS ORDERED: DUONEB 2.5-0.5 M3 ML AEROSOL (20:25)
[2016-08-01] MEDS ORDERED: TRAMADOL HCL50 MG PO (20:28)
[2016-08-01] MEDS ORDERED: ENULOSE10 GM/15 M PO (20:29)
[2016-08-02 05:44] LABS: POINT-OF-CARE METER ID UU13113702; POINT-OF-CARE USER ID 611181312
[2016-08-02 07:25] LABS: HEMATOCRIT 34.2 % (36.0-46.0); MCH 35.1 PG (29.0-34.0); MCHC 33.3 G/DL (30.0-36.0); MCV 105.2 FL (83-99); MEAN PLAT.VOLUME 10.5 uM^3 (9.5-12.4); PLATELET COUNT 113 K/uL (156-360); RBC DIS.WIDTH-CV 14.6 % (11.8-14.6); RBC DIS.WIDTH-SD 57.2 % (39-53); RED BLOOD COUNT 3.25 M/uL (3.80-5.20)
[2016-08-02 07:43] LABS: POINT-OF-CARE METER ID UU13113702
[2016-08-02 08:10] LABS: ANION GAP 8 MEQ/L (2-14); CHLORIDE 107 MEQ/L (99-109); POTASSIUM 4.4 MEQ/L (3.7-5.4); SAMPLE HEMOLYSIS CHECK 0; SAMPLE ICTERIC CHECK 0; SAMPLE LIPEMIA CHECK 0; SODIUM 138 MEQ/L (136-147); TOTAL BILIRUBIN 2.1 MG/DL (0.0-1.0)
[2016-08-02 08:15] LABS: ALKALINE PHOSPHATASE 390 IU/L (3-129); GFR ESTIMATE (CALCULATED) 45 mL/min/; GLUCOSE 181 mg/dL (70-99); UREA NITROGEN (BUN) 20 mg/dL (9-23)
[2016-08-02 12:15] LABS: POINT-OF-CARE METER ID UU13113702
[2016-08-02 16:42] VITALS: BP 149/52
[2016-08-02 17:46] LABS: POINT-OF-CARE METER ID UU13113725
[2016-08-02 18:33] VITALS: BP 141/63
[2016-08-02 22:36] VITALS: BP 138/63
[2016-08-03 00:03] LABS: POINT-OF-CARE METER ID UU13113725
[2016-08-03 03:17] VITALS: BP 129/67
[2016-08-03 06:30] LABS: EOSINOPHIL (%) 0.7 % (0-5); EOSINOPHIL COUNT 0.1 K/uL (0-0.3); HEMATOCRIT 34.1 % (36.0-46.0); IMMATURE GRANULOCYTE COUNT 0.1 K/uL; INSTRUMENT ABS NEUTROPHIL CT 5.3 K/uL; MCH 35.2 PG (29.0-34.0); MCV 103.3 FL (83-99); MEAN PLAT.VOLUME 10.4 uM^3 (9.5-12.4); MONOCYTE (%) 5.4 % (3-12); MONOCYTE COUNT 0.4 K/uL (0-0.8); NEUTROPHIL (%) 78.1 % (45-76); NEUTROPHIL COUNT 5.3 K/uL (1.8-6.4); PLATELET COUNT 133 K/uL (156-360); RBC DIS.WIDTH-CV 14.6 % (11.8-14.6); RBC DIS.WIDTH-SD 55.6 % (39-53)
[2016-08-03 06:34] LABS: ANION GAP 9 MEQ/L (2-14); CHLORIDE 101 MEQ/L (99-109); GFR ESTIMATE (CALCULATED) 41 mL/min/; GLUCOSE 137 mg/dL (70-99); POTASSIUM 4.9 MEQ/L (3.7-5.4); SAMPLE HEMOLYSIS CHECK 0; SAMPLE ICTERIC CHECK 0; SAMPLE LIPEMIA CHECK 0; SODIUM 132 MEQ/L (136-147); UREA NITROGEN (BUN) 21 mg/dL (9-23)
[2016-08-03 06:41] LABS: WHITE BLOOD COUNT 6.8 K/uL (4.1-10.2)
[2016-08-03 08:16] VITALS: BP 139/66
[2016-08-03 15:27] VITALS: BP 136/68
[2016-08-03 17:34] LABS: TYPE OF FLUID PARACENTESIS
[2016-08-03 18:32] LABS: POINT-OF-CARE METER ID UU13113725
[2016-08-03 18:43] LABS: BODY FLUID RBC'S 1000 /MM^3 (0-100); BODY FLUID WBC'S 576 /MM^3 (0-500)
[2016-08-03 18:46] LABS: POLYNUCLEAR WBC'S 60 % (0-25)
[2016-08-03 18:47] LABS: BODY FLUID EOSINOPHILS 0 % (0-25); MONONUCLEAR WBC'S 40 %
[2016-08-03 22:30] VITALS: BP 124/60
[2016-08-04 03:56] VITALS: BP 125/82
[2016-08-04 08:54] VITALS: BP 121/60
[2016-08-04 12:13] LABS: POINT-OF-CARE METER ID UU13113725
[2016-08-04 12:15] VITALS: BP 133/52
[2016-08-04 13:03] LABS: ANION GAP 6 MEQ/L (2-14); CHLORIDE 103 MEQ/L (99-109); GFR ESTIMATE (CALCULATED) 45 mL/min/; GLUCOSE 117 mg/dL (70-99); POTASSIUM 4.7 MEQ/L (3.7-5.4); SAMPLE HEMOLYSIS CHECK 0; SAMPLE ICTERIC CHECK 0; SAMPLE LIPEMIA CHECK 0; SODIUM 132 MEQ/L (136-147); UREA NITROGEN (BUN) 20 mg/dL (9-23)
[2016-08-04 13:07] LABS: EOSINOPHIL (%) 1.2 % (0-5); EOSINOPHIL COUNT 0.1 K/uL (0-0.3); HEMATOCRIT 32.7 % (36.0-46.0); LYMPHOCYTE COUNT 0.7 K/uL (1.0-2.8); MCH 34.8 PG (29.0-34.0); MCHC 33.3 G/DL (30.0-36.0); MCV 104.5 FL (83-99); MEAN PLAT.VOLUME 10.6 uM^3 (9.5-12.4); MONOCYTE (%) 6.1 % (3-12); MONOCYTE COUNT 0.3 K/uL (0-0.8); NEUTROPHIL (%) 73.4 % (45-76); PLATELET COUNT 104 K/uL (156-360); RBC DIS.WIDTH-CV 14.4 % (11.8-14.6); RBC DIS.WIDTH-SD 55.8 % (39-53); RED BLOOD COUNT 3.13 M/uL (3.80-5.20)
[2016-08-04 13:12] LABS: WHITE BLOOD COUNT 4.1 K/uL (4.1-10.2)
[2016-08-04 17:56] VITALS: BP 116/62
[2016-08-04 19:11] VITALS: BP 118/60
[2016-08-04 22:33] VITALS: BP 117/59
[2016-08-05 03:17] VITALS: BP 115/56
[2016-08-05 07:02] VITALS: BP 114/67
[2016-08-05 15:39] VITALS: BP 125/63
[2016-08-05 19:29] VITALS: BP 119/58
[2016-08-05 23:12] VITALS: BP 113/65
[2016-08-06 00:18] LABS: POINT-OF-CARE METER ID UU13113725
[2016-08-06 07:07] LABS: ALKALINE PHOSPHATASE 335 IU/L (3-129); ANION GAP 9 MEQ/L (2-14); CHLORIDE 103 MEQ/L (99-109); GFR ESTIMATE (CALCULATED) 45 mL/min/; GLUCOSE 89 mg/dL (70-99); SAMPLE HEMOLYSIS CHECK 1; SAMPLE ICTERIC CHECK 0; SAMPLE LIPEMIA CHECK 0; SODIUM 136 MEQ/L (136-147); TOTAL BILIRUBIN 2.3 MG/DL (0.0-1.0); UREA NITROGEN (BUN) 27 mg/dL (9-23)
[2016-08-06 07:08] LABS: POTASSIUM 4.4 MEQ/L (3.7-5.4)
[2016-08-06 07:45] VITALS: BP 123/64
[2016-08-06 08:19] LABS: HEMATOCRIT 35.6 % (36.0-46.0); MCH 35.5 PG (29.0-34.0); MCHC 33.1 G/DL (30.0-36.0); MCV 107.2 FL (83-99); MEAN PLAT.VOLUME 10.3 uM^3 (9.5-12.4); PLATELET COUNT 100 K/uL (156-360); RBC DIS.WIDTH-CV 13.9 % (11.8-14.6); RBC DIS.WIDTH-SD 55.5 % (39-53); RED BLOOD COUNT 3.32 M/uL (3.80-5.20)
[2016-08-06 11:18] LABS: POINT-OF-CARE METER ID UU13113725
[2016-08-06 15:37] VITALS: BP 123/64
[2016-08-06 22:51] VITALS: BP 105/57
[2016-08-07 05:53] LABS: POINT-OF-CARE METER ID UU13113725
[2016-08-07 07:40] VITALS: BP 121/60
[2016-08-07 12:27] LABS: POINT-OF-CARE METER ID UU13113725
[2016-08-07 16:09] LABS: POINT-OF-CARE METER ID UU13113725
[2016-08-07 17:16] LABS: TYPE OF FLUID PARACENTESIS
[2016-08-07 18:07] LABS: BODY FLUID EOSINOPHILS 0 % (0-25); BODY FLUID RBC'S 3000 /MM^3 (0-100); BODY FLUID WBC'S 169 /MM^3 (0-500); MONONUCLEAR WBC'S 44 %; POLYNUCLEAR WBC'S 56 % (0-25)
[2016-08-07 18:20] VITALS: BP 136/79
[2016-08-07 22:30] VITALS: BP 130/73
[2016-08-08 07:44] VITALS: BP 138/66
[2016-08-08 16:29] LABS: POINT-OF-CARE METER ID UU13113725
[2016-08-08 18:15] VITALS: BP 142/72
[2016-08-08] MEDS ORDERED: PREDNISONE20 MG PO (18:24)
[2016-08-08] MEDS ORDERED: ONDANSETRON4 MG/2 ML PO (18:24)
[2016-08-08] MEDS ORDERED: CLOTRIM ANTIFUN15 GM TP (18:24)
[2016-08-08] MEDS ORDERED: CIPROFLOXACIN500 M1 PO (18:24)
== END 2016-08-08 19:32 | DRG 442 ==
LOC: EME 17:52 → 5EAST 19:59 → EDOF 19:59 → 5EAST 08-02 15:24
PROVIDERS: Emergency Medicine; Family Medicine; Internal Medicine; Internal Medicine Gastroenterology
PROC: 0W9G3ZX Drainage of Peritoneal Cavity, Percutaneous Approach, Diagnostic (ICD-10-PCS; principal; 2016-08-03)
PROC: 0W9G3ZX Drainage of Peritoneal Cavity, Percutaneous Approach, Diagnostic (ICD-10-PCS; 2016-08-07)
DX: K72.90 Hepatic failure, unspecified without coma (principal); K92.2 Gastrointestinal hemorrhage, unspecified; D61.818 Other pancytopenia; E87.1 Hypo-osmolality and hyponatremia; K74.60 Unspecified cirrhosis of liver; Z68.41 Body mass index [BMI] 40.0-44.9, adult; B19.20 Unspecified viral hepatitis C without hepatic coma; K71.51 Toxic liver disease with chronic active hepatitis with ascites; E11.65 Type 2 diabetes mellitus with hyperglycemia; E11.22 Type 2 diabetes mellitus with diabetic chronic kidney disease; I12.9 Hypertensive chronic kidney disease with stage 1 through stage 4 chronic kidney disease, or unspecified chronic kidney disease; N18.9 Chronic kidney disease, unspecified; E66.01 Morbid (severe) obesity due to excess calories; E78.5 Hyperlipidemia, unspecified; E03.9 Hypothyroidism, unspecified; Z91.11 Patient's noncompliance with dietary regimen; I87.8 Other specified disorders of veins; D63.1 Anemia in chronic kidney disease
CPT/HCPCS: 70450; 71010; 76000; 76705; 80048; 80053; 81003; 82140; 82948; 85025; 85027; 87070; 87075; 87205; 88108; 89051; 94640; 94640 76; 94760; 99202; 99281; 99285; J0696; J1815; J2405; J7030; J7050; J7512

== ENCOUNTER → 2016-08-19 | Outpatient (CLI) | payer OTHER ==
[~2016-08-19] MED LIST changes: +CIPROFLOXACIN500 M1 PO; +CLOTRIM ANTIFUN15 GM TP; +DELTASONE20 M1 PO; +DUONEB 2.5-0.5 M3 ML AEROSOL; +FEROSUL325 MG PO; +KLOR-CON 1010 ME1 PO; +NEURONTIN300 MG PO; +ONDANSETRON4 MG/2 ML PO; +PREDNISONE20 MG PO
== END | disposition home or self-care (01) ==
LOC: RAD 07-01 13:15 → EDSTATUS 08-05 08:30 → RAD 12:59
PROC: 0W9G3ZZ Drainage of Peritoneal Cavity, Percutaneous Approach (ICD-10-PCS; principal; 2016-08-19)
DX: K72.90 Hepatic failure, unspecified without coma (principal); N18.6 End stage renal disease

== ENCOUNTER → 2016-09-02 | Outpatient (CLI) | payer OTHER | END | disposition home or self-care (01) | LOC: RAD 08:08 | PROC: 0W9G3ZZ Drainage of Peritoneal Cavity, Percutaneous Approach (ICD-10-PCS; principal; 2016-09-02) | DX: R18.8 Other ascites (principal) ==

== ENCOUNTER → 2016-09-09 | Outpatient (CLI) | payer OTHER ==
[~2016-09-09] MED LIST changes: +ADVIL,NUPRIN,M200 MG PO; +CALCIUM 500 MG1 EACH PO; +CEPHALEXIN500 MG PO; +COLACE100 MG PO; +KEFLEX500 MG PO; +ZUPLENZ4 MG PO
== END ==
LOC: RAD 08:09
PROC: 0W9G3ZZ Drainage of Peritoneal Cavity, Percutaneous Approach (ICD-10-PCS; principal; 2016-09-09)
DX: R18.8 Other ascites (principal)
CPT/HCPCS: P9047

== ENCOUNTER 2016-09-11 12:08 | Inpatient (IN) | payer OTHER ==
[~2016-09-11] VITALS: Ht 165.1 cm; Wt 103.8 kg
[~2016-09-11 12:08] MED LIST changes: -ADVIL,NUPRIN,M200 MG PO; -CALCIUM 500 MG1 EACH PO; -CEPHALEXIN500 MG PO; -ZUPLENZ4 MG PO
[2016-09-11 13:18] LABS: POINT-OF-CARE METER ID UU14100415
[2016-09-11 13:34] LABS: HEMATOCRIT 30.2 % (36.0-46.0); MCH 36.2 PG (29.0-34.0); MCHC 34.4 G/DL (30.0-36.0); MCV 105.2 FL (83-99); MEAN PLAT.VOLUME 11.2 uM^3 (9.5-12.4); PLATELET COUNT 80 K/uL (156-360); RBC DIS.WIDTH-CV 17.4 % (11.8-14.6); RBC DIS.WIDTH-SD 66.9 % (39-53); RED BLOOD COUNT 2.87 M/uL (3.80-5.20); WHITE BLOOD COUNT 9.3 K/uL (4.1-10.2)
[2016-09-11 13:35] LABS: CARBON DIOXIDE (BICARBONATE) 24.8 MEQ/L (20-31)
[2016-09-11 13:44] LABS: INTER. NORMALIZED RATIO 1.4; PROTHROMBIN TIME 14.8 (9.2-11.2)
[2016-09-11 13:46] LABS: CHLORIDE 101 mEq/L (99-109); POTASSIUM 5.5 mEq/L (3.7-5.4); SODIUM 132 mEq/L (136-147)
[2016-09-11 13:47] LABS: GLUCOSE 168 mg/dL (70-99)
[2016-09-11 13:49] LABS: ANION GAP 14 MEQ/L (2-14)
[2016-09-11 13:51] LABS: GFR ESTIMATE (CALCULATED) 38 mL/min/
[2016-09-11 13:52] LABS: UREA NITROGEN (BUN) 32 mg/dL (9-23)
[2016-09-11 13:57] LABS: TROP-I INTERPRETATION NEGATIVE; TROPONIN-I 0.02 ng/mL (0.0-0.30)
[2016-09-11] MEDS ORDERED: DELTASONE20 M1 PO (14:28)
[2016-09-11] MEDS ORDERED: CALCIUM 500 MG1 EACH PO (14:29)
[2016-09-11] MEDS ORDERED: CEPHALEXIN500 MG PO (14:29)
[2016-09-11] MEDS ORDERED: NOVOLOG PE100 UNITS/ SC (14:30)
[2016-09-11] MEDS ORDERED: TRAMADOL HCL50 MG PO (14:31)
[2016-09-11] MEDS ORDERED: GLUCO BURST37.5 GM PO (14:32)
[2016-09-11] MEDS ORDERED: ZUPLENZ4 MG PO (14:33)
[2016-09-11] MEDS ORDERED: ADVIL,NUPRIN,M200 MG PO (14:33)
[2016-09-11] MEDS ORDERED: PROMETHAZINE HC25 M1 PO (14:34)
[2016-09-11 15:37] LABS: ADD MIUA? YES; BILIRUBIN NEGATIVE; BLOOD MODERATE; COLOR AMBER ((YELLOW)); GLUCOSE (STRIP) NEGATIVE; KETONES NEGATIVE; LEUKOCYTES SMALL; NITRITE NEGATIVE; PROTEIN (STRIP) 30; SPECIFIC GRAVITY 1.015 (1.000-1.030); UROBILINOGEN 0.2 MG/DL (0.2-1.0)
[2016-09-11 15:47] LABS: CASTS PRESENT /LPF; HYALINE CASTS 30-40 /LPF
[2016-09-11 15:48] LABS: RED BLOOD CELLS 30-40 /HPF (0-5)
[2016-09-11 15:49] LABS: BACTERIA RARE /HPF; EPITHELIAL CELLS 2+ /HPF; MUCUS TRACE /LPF; UCUL ADDED? NO; WHITE BLOOD CELLS 20-30 /HPF (0-5)
[2016-09-11 16:06] LABS: C DIFF TOXIN POSITIVE (NEGATIVE)
[2016-09-11 16:09] LABS: PROBE CHECK PASS
[2016-09-11 20:11] VITALS: BP 100/63
[2016-09-11 23:18] VITALS: BP 110/53
[2016-09-12 01:37] LABS: POINT-OF-CARE METER ID UU14149397
[2016-09-12 03:25] VITALS: BP 153/72
[2016-09-12 03:59] VITALS: BP 128/72
[2016-09-12 06:02] LABS: ANION GAP 8 MEQ/L (2-14); CHLORIDE 104 MEQ/L (99-109); GFR ESTIMATE (CALCULATED) 41 mL/min/; GLUCOSE 183 mg/dL (70-99); POTASSIUM 4.8 MEQ/L (3.7-5.4); SAMPLE HEMOLYSIS CHECK 0; SAMPLE ICTERIC CHECK 1; SAMPLE LIPEMIA CHECK 0; SODIUM 134 MEQ/L (136-147); UREA NITROGEN (BUN) 33 mg/dL (9-23)
[2016-09-12 09:23] VITALS: BP 137/65
[2016-09-12 17:32] LABS: POINT-OF-CARE METER ID UU14188577
[2016-09-12 19:55] VITALS: BP 137/76
[2016-09-12 23:34] VITALS: BP 136/70
[2016-09-12 23:53] LABS: POINT-OF-CARE METER ID UU14188577
[2016-09-13 06:33] LABS: POINT-OF-CARE METER ID UU14188577
[2016-09-13 07:55] LABS: ANION GAP 9 MEQ/L (2-14); CHLORIDE 111 MEQ/L (99-109); GFR ESTIMATE (CALCULATED) 38 mL/min/; GLUCOSE 254 mg/dL (70-99); POTASSIUM 3.8 MEQ/L (3.7-5.4); SAMPLE HEMOLYSIS CHECK 0; SAMPLE ICTERIC CHECK 1; SAMPLE LIPEMIA CHECK 0; SODIUM 140 MEQ/L (136-147); UREA NITROGEN (BUN) 33 mg/dL (9-23)
[2016-09-13 10:12] VITALS: BP 136/78
[2016-09-13 15:51] VITALS: BP 138/67
[2016-09-13 21:00] VITALS: BP 138/56
[2016-09-13 23:34] LABS: POINT-OF-CARE METER ID UU14188577
[2016-09-14 08:04] VITALS: BP 126/64
[2016-09-14 11:33] VITALS: BP 130/68
[2016-09-14 12:03] LABS: POINT-OF-CARE METER ID UU14188577
[2016-09-14 16:44] VITALS: BP 126/60
[2016-09-14 19:57] VITALS: BP 149/87
[2016-09-15 00:13] VITALS: BP 136/70
[2016-09-15 03:43] VITALS: BP 135/67
[2016-09-15 08:23] VITALS: BP 122/70
[2016-09-15 12:16] VITALS: BP 126/67
[2016-09-15] MEDS ORDERED: DURICEF500 MG PO (12:59)
== END 2016-09-15 16:25 | DRG 442 ==
LOC: EME 12:08 → EDOF 16:32 → 3EAST 16:32 → EDOF 16:32 → 3EAST 18:55
PROVIDERS: Emergency Medicine; Family Medicine; Internal Medicine Gastroenterology
PROC: 0W9G3ZZ Drainage of Peritoneal Cavity, Percutaneous Approach (ICD-10-PCS; principal; 2016-09-09)
DX: K72.91 Hepatic failure, unspecified with coma (principal); A04.7 Enterocolitis due to Clostridium difficile; L03.115 Cellulitis of right lower limb; L03.116 Cellulitis of left lower limb; E87.1 Hypo-osmolality and hyponatremia; F33.9 Major depressive disorder, recurrent, unspecified; Z68.41 Body mass index [BMI] 40.0-44.9, adult; Z91.14 Patient's other noncompliance with medication regimen; E11.22 Type 2 diabetes mellitus with diabetic chronic kidney disease; N18.3 Chronic kidney disease, stage 3 (moderate); K75.81 Nonalcoholic steatohepatitis (NASH); K74.69 Other cirrhosis of liver; E66.01 Morbid (severe) obesity due to excess calories; E03.9 Hypothyroidism, unspecified; I12.9 Hypertensive chronic kidney disease with stage 1 through stage 4 chronic kidney disease, or unspecified chronic kidney disease; E78.5 Hyperlipidemia, unspecified; F41.1 Generalized anxiety disorder; R45.1 Restlessness and agitation; Z79.4 Long term (current) use of insulin
CPT/HCPCS: 70450; 71010; 80048; 80202; 81003; 82140; 82803; 82948; 83605; 84484; 85027; 85610; 85730; 87040; 87493; 93005; 99281; 99285; J0692; J1815; J3370; J7050; P9047; S0030

== ENCOUNTER 2016-09-18 23:57 | Observation (INO) | payer OTHER ==
[~2016-09-18] VITALS: Ht 144.8 cm; Wt 102.5 kg
[~2016-09-18 23:57] MED LIST changes: -CEFADROXIL500 MG PO; -FLUCONAZOLE100 MG PO; -HUMALOG100 UNIT/2 SC; -VANCOCIN 250 M250 MG PO; -ZOFRAN4 MG PO
[2016-09-19 00:57] LABS: ADD MIUA? YES; BILIRUBIN NEGATIVE; BLOOD LARGE; COLOR AMBER ((YELLOW)); GLUCOSE (STRIP) NEGATIVE; KETONES NEGATIVE; LEUKOCYTES TRACE; NITRITE NEGATIVE; PROTEIN (STRIP) 30; SPECIFIC GRAVITY 1.017 (1.000-1.030); UROBILINOGEN 0.2 MG/DL (0.2-1.0)
[2016-09-19 01:20] LABS: HEMATOCRIT 33.6 % (36.0-46.0); MCH 35.6 PG (29.0-34.0); MCHC 33.3 G/DL (30.0-36.0); MCV 106.7 FL (83-99); MEAN PLAT.VOLUME 10.7 uM^3 (9.5-12.4); PLATELET COUNT 129 K/uL (156-360); RBC DIS.WIDTH-CV 17.9 % (11.8-14.6); RBC DIS.WIDTH-SD 68.8 % (39-53); RED BLOOD COUNT 3.15 M/uL (3.80-5.20); WHITE BLOOD COUNT 16.4 K/uL (4.1-10.2)
[2016-09-19 01:31] LABS: CHLORIDE 106 mEq/L (99-109); SODIUM 134 mEq/L (136-147)
[2016-09-19 01:33] LABS: GLUCOSE 221 mg/dL (70-99)
[2016-09-19 01:34] LABS: ANION GAP 15 MEQ/L (2-14)
[2016-09-19 01:38] LABS: UREA NITROGEN (BUN) 31 mg/dL (9-23)
[2016-09-19 01:46] LABS: GFR ESTIMATE (CALCULATED) 26 mL/min/; POTASSIUM 5.3 mEq/L (3.7-5.4)
[2016-09-19 02:03] LABS: BACTERIA NONE SEEN /HPF; CALCIUM OXALATE CRYSTALS 1+ /HPF; EPITHELIAL CELLS RARE /HPF; HYALINE CASTS 0-5 /LPF; MUCUS TRACE /LPF; RED BLOOD CELLS 15-20 /HPF (0-5); UCUL ADDED? NO; WHITE BLOOD CELLS 20-30 /HPF (0-5)
[2016-09-19] MEDS ORDERED: LASIX20 MG PO ×2 (03:21→17:01)
[2016-09-19] MEDS ORDERED: VANCOCIN 250 M250 MG PO (03:42)
[2016-09-19 04:19] VITALS: BP 152/69
[2016-09-19 05:36] LABS: POINT-OF-CARE METER ID UU13113725
[2016-09-19 07:19] VITALS: BP 119/70
[2016-09-19 13:12] VITALS: BP 112/60
[2016-09-19 16:36] LABS: POINT-OF-CARE METER ID UU13113725
[2016-09-19] MEDS ORDERED: PROTONIX40 MG PO (16:43)
[2016-09-19 16:52] VITALS: BP 133/71
[2016-09-19] MEDS ORDERED: CEFADROXIL500 MG PO (16:55)
[2016-09-19] MEDS ORDERED: HUMALOG100 UNIT/2 SC ×2 (16:57→16:59)
[2016-09-19] MEDS ORDERED: ZOFRAN4 MG PO (17:07)
[2016-09-19 19:22] VITALS: BP 139/63
[2016-09-19 23:27] VITALS: BP 128/59
[2016-09-20 03:21] VITALS: BP 127/77
[2016-09-20 06:03] LABS: POINT-OF-CARE METER ID UU13113725
[2016-09-20 06:18] LABS: EOSINOPHIL (%) 0.9 % (0-5); EOSINOPHIL COUNT 0.1 K/uL (0-0.3); HEMATOCRIT 25.8 % (36.0-46.0); IMMATURE GRANULOCYTE (%) 1.3 % (0.0-0.7); IMMATURE GRANULOCYTE COUNT 0.1 K/uL; INSTRUMENT ABS NEUTROPHIL CT 5.9 K/uL; LYMPHOCYTE COUNT 0.6 K/uL (1.0-2.8); MCH 36.2 PG (29.0-34.0); MCHC 32.9 G/DL (30.0-36.0); MCV 109.8 FL (83-99); MONOCYTE (%) 4.2 % (3-12); MONOCYTE COUNT 0.3 K/uL (0-0.8); NEUTROPHIL (%) 85.2 % (45-76); NEUTROPHIL COUNT 5.9 K/uL (1.8-6.4); RBC DIS.WIDTH-CV 18.1 % (11.8-14.6); RBC DIS.WIDTH-SD 72.9 % (39-53)
[2016-09-20 06:24] LABS: RED BLOOD COUNT 2.35 M/uL (3.80-5.20)
[2016-09-20 06:26] LABS: ANION GAP 7 MEQ/L (2-14); CHLORIDE 103 MEQ/L (99-109); POTASSIUM 4.9 MEQ/L (3.7-5.4); SAMPLE HEMOLYSIS CHECK 0; SAMPLE ICTERIC CHECK 0; SAMPLE LIPEMIA CHECK 0
[2016-09-20 06:32] LABS: GLUCOSE 233 mg/dL (70-99); UREA NITROGEN (BUN) 33 mg/dL (9-23)
[2016-09-20 06:33] LABS: GFR ESTIMATE (CALCULATED) 36 mL/min/; SODIUM 126 MEQ/L (136-147)
[2016-09-20 07:48] LABS: MEAN PLAT.VOLUME 10.9 uM^3 (9.5-12.4); PLAT.SUFFICIENCY DECREASED
[2016-09-20 07:59] LABS: PLATELET COUNT 80 K/uL (156-360)
[2016-09-20 08:30] VITALS: BP 133/60
[2016-09-20 12:08] VITALS: BP 140/65
[2016-09-20 17:03] LABS: POINT-OF-CARE METER ID UU13113725
[2016-09-20 17:09] VITALS: BP 127/62
[2016-09-20] MEDS ORDERED: FLUCONAZOLE100 MG PO (19:06)
[2016-09-20 19:32] VITALS: BP 144/64
[2016-09-21 03:06] VITALS: BP 138/62
[2016-09-21 07:10] VITALS: BP 138/66
== END 2016-09-21 11:00 ==
LOC: EME → EDBD 23:57 → 5EAST 09-19 03:14 → EDOF 09-19 03:14 → 5EAST 09-19 03:14 → EDOF 09-19 03:14 → 5EAST 09-19 04:17
PROVIDERS: Emergency Medicine; Family Medicine
DX: N17.9 Acute kidney failure, unspecified (principal); E87.2 Acidosis; E87.1 Hypo-osmolality and hyponatremia; R11.2 Nausea with vomiting, unspecified; I12.9 Hypertensive chronic kidney disease with stage 1 through stage 4 chronic kidney disease, or unspecified chronic kidney disease; N18.2 Chronic kidney disease, stage 2 (mild); E11.65 Type 2 diabetes mellitus with hyperglycemia; E03.9 Hypothyroidism, unspecified; E66.01 Morbid (severe) obesity due to excess calories; Z68.42 Body mass index [BMI] 45.0-49.9, adult; K74.60 Unspecified cirrhosis of liver; R18.8 Other ascites
CPT/HCPCS: 80048; 81003; 82140; 82948; 85025; 85027; 87086; 87106; G0378; J0692; J0696; J1644; J1815; J7030; J7050; J7512; Q0169

== ENCOUNTER → 2016-09-18 | Outpatient (CLI) | payer OTHER ==
[~2016-09-18] MED LIST changes: +ADVIL,NUPRIN,M200 MG PO; +CALCIUM 500 MG1 EACH PO; +CEFADROXIL500 MG PO; +CEPHALEXIN500 MG PO; +DURICEF500 MG PO; +FLUCONAZOLE100 MG PO; +HUMALOG100 UNIT/2 SC; +VANCOCIN 250 M250 MG PO; +ZOFRAN4 MG PO; +ZUPLENZ4 MG PO
== END | disposition home or self-care (01) ==
LOC: RAD 08:30
PROC: 0WJG3ZZ Inspection of Peritoneal Cavity, Percutaneous Approach (ICD-10-PCS; principal; 2016-09-18)
DX: R18.8 Other ascites (principal); Z53.09 Procedure and treatment not carried out because of other contraindication
CPT/HCPCS: 76705

== ENCOUNTER 2016-09-23 14:58 | Inpatient (IN) | payer OTHER ==
[~2016-09-23] VITALS: Ht 152.4 cm; Wt 104.2 kg
[~2016-09-23 14:58] MED LIST changes: +CEFADROXIL500 MG PO; +FLUCONAZOLE100 MG PO; +HUMALOG100 UNIT/2 SC; +VANCOCIN 250 M250 MG PO; +ZOFRAN4 MG PO
[2016-09-23 16:26] LABS: BILIRUBIN NEGATIVE; BLOOD NEGATIVE; COLOR YELLOW ((YELLOW)); GLUCOSE (STRIP) NEGATIVE; KETONES NEGATIVE; LEUKOCYTES NEGATIVE; NITRITE NEGATIVE; PROTEIN (STRIP) NEGATIVE; SPECIFIC GRAVITY 1.013 (1.000-1.030); UROBILINOGEN 0.2 MG/DL (0.2-1.0)
[2016-09-23 16:30] LABS: ADD MIUA? NO; UCUL ADDED? NO
[2016-09-23 16:32] LABS: CHLORIDE 110 mEq/L (99-109); POTASSIUM 5.4 mEq/L (3.7-5.4)
[2016-09-23 16:34] LABS: GLUCOSE 177 mg/dL (70-99)
[2016-09-23 16:35] LABS: ANION GAP 8 MEQ/L (2-14)
[2016-09-23 16:36] LABS: TOTAL BILIRUBIN 2.6 mg/dL (0.0-1.0)
[2016-09-23 16:38] LABS: ALKALINE PHOSPHATASE 250 IU/L (3-129); GFR ESTIMATE (CALCULATED) 36 mL/min/; SODIUM 134 mEq/L (136-147)
[2016-09-23 16:39] LABS: UREA NITROGEN (BUN) 30 mg/dL (9-23)
[2016-09-23 16:41] LABS: TROP-I INTERPRETATION NEGATIVE; TROPONIN-I 0.03 ng/mL (0.0-0.30)
[2016-09-23] MEDS ORDERED: GLUCO BURST37.5 GM PO (17:26)
[2016-09-23 17:35] LABS: EOSINOPHIL (%) 2.6 % (0-5); EOSINOPHIL COUNT 0.2 K/uL (0-0.3); HEMATOCRIT 33.2 % (36.0-46.0); IMMATURE GRANULOCYTE (%) 3.8 % (0.0-0.7); IMMATURE GRANULOCYTE COUNT 0.3 K/uL; INSTRUMENT ABS NEUTROPHIL CT 5.2 K/uL; LYMPHOCYTE COUNT 0.6 K/uL (1.0-2.8); MCH 36.3 PG (29.0-34.0); MCHC 33.4 G/DL (30.0-36.0); MCV 108.5 FL (83-99); MEAN PLAT.VOLUME 10.4 uM^3 (9.5-12.4); MONOCYTE (%) 7.1 % (3-12); MONOCYTE COUNT 0.5 K/uL (0-0.8); NEUTROPHIL (%) 77.2 % (45-76); NEUTROPHIL COUNT 5.2 K/uL (1.8-6.4); PLATELET COUNT 98 K/uL (156-360); RBC DIS.WIDTH-CV 18.2 % (11.8-14.6); RBC DIS.WIDTH-SD 73.4 % (39-53); WHITE BLOOD COUNT 6.7 K/uL (4.1-10.2)
[2016-09-23 17:36] LABS: RED BLOOD COUNT 3.06 M/uL (3.80-5.20)
[2016-09-23 20:09] VITALS: BP 134/64
[2016-09-23 21:38] LABS: POINT-OF-CARE METER ID UU13113725
[2016-09-23 23:48] VITALS: BP 138/65
[2016-09-24 04:04] VITALS: BP 156/79
[2016-09-24 07:10] LABS: HEMATOCRIT 33.4 % (36.0-46.0); MCHC 33.2 G/DL (30.0-36.0); MCV 108.4 FL (83-99); MEAN PLAT.VOLUME 10.8 uM^3 (9.5-12.4); PLATELET COUNT 114 K/uL (156-360); RBC DIS.WIDTH-CV 18.1 % (11.8-14.6); RBC DIS.WIDTH-SD 71.7 % (39-53); RED BLOOD COUNT 3.08 M/uL (3.80-5.20); WHITE BLOOD COUNT 8.2 K/uL (4.1-10.2)
[2016-09-24 07:34] LABS: ALKALINE PHOSPHATASE 300 IU/L (3-129); ANION GAP 9 MEQ/L (2-14); CHLORIDE 106 MEQ/L (99-109); GFR ESTIMATE (CALCULATED) 41 mL/min/; SAMPLE HEMOLYSIS CHECK 0; SAMPLE ICTERIC CHECK 1; SAMPLE LIPEMIA CHECK 0; SODIUM 134 MEQ/L (136-147); TOTAL BILIRUBIN 3.7 MG/DL (0.0-1.0); UREA NITROGEN (BUN) 29 mg/dL (9-23)
[2016-09-24 07:35] LABS: GLUCOSE 301 mg/dL (70-99)
[2016-09-24 07:56] VITALS: BP 169/94
[2016-09-24 12:00] VITALS: BP 182/106
[2016-09-24 16:51] VITALS: BP 171/86
[2016-09-24 19:50] VITALS: BP 198/50
[2016-09-25] VITALS (9 sets, daily range): BP systolic 00–208; BP diastolic 00–110
[2016-09-25 00:46] LABS: BASE EXCESS -10.8 mEq/L (-3 to +3); BICARBONATE 12.7 mEq/L (22-26); CARBOXY HGB 2.9 % (0-5); METHEMOGLOBIN 1.3 % (0-1.5); PCO2 21 mm Hg (35-45); PO2 151 mm Hg (80-100); pH 7.39 (7.35-7.45)
[2016-09-25 00:48] LABS: COMMENTS - BLOOD GASES C+; DEVICE NRM; FI02 90 %; O2 FLOW 15 L/MIN; SITE RR
[2016-09-25 01:07] LABS: HEMATOCRIT 37.8 % (36.0-46.0); MCH 36.3 PG (29.0-34.0); MCHC 33.1 G/DL (30.0-36.0); MCV 109.9 FL (83-99); MEAN PLAT.VOLUME 10.5 uM^3 (9.5-12.4); NRBC (%) 0.1 /100 WBC (0-0); RBC DIS.WIDTH-CV 18.2 % (11.8-14.6); RBC DIS.WIDTH-SD 74.2 % (39-53); RED BLOOD COUNT 3.44 M/uL (3.80-5.20)
[2016-09-25 01:09] LABS: PLATELET COUNT 236 K/uL (156-360); WHITE BLOOD COUNT 17.6 K/uL (4.1-10.2)
[2016-09-25 01:18] LABS: CHLORIDE 108 mEq/L (99-109); POTASSIUM 5.4 mEq/L (3.7-5.4); SODIUM 133 mEq/L (136-147)
[2016-09-25 01:20] LABS: GLUCOSE 396 mg/dL (70-99)
[2016-09-25 01:21] LABS: ANION GAP 13 MEQ/L (2-14)
[2016-09-25 01:24] LABS: ALKALINE PHOSPHATASE 308 IU/L (3-129)
[2016-09-25 01:25] LABS: UREA NITROGEN (BUN) 31 mg/dL (9-23)
[2016-09-25 01:26] LABS: DIRECT BILIRUBIN 2.1 mg/dL (0.0-0.3)
[2016-09-25 01:28] LABS: GFR ESTIMATE (CALCULATED) 25 mL/min/; TOTAL BILIRUBIN 3.7 mg/dL (0.0-1.0)
[2016-09-25 02:05] LABS: BASE EXCESS -13.1 mEq/L (-3 to +3); BICARBONATE 13.5 mEq/L (22-26); CARBOXY HGB 2.3 % (0-5); METHEMOGLOBIN 1.4 % (0-1.5)
[2016-09-25 02:07] LABS: MECHANICAL RATE 16 resp/min; MODE AC; PCO2 33 mm Hg (35-45); PEEP 5 CM/H20; PO2 108 mm Hg (80-100); TIDAL VOLUME 450 ML; TOTAL RESP RATE 33 resp/min; pH 7.22 (7.35-7.45)
[2016-09-25 02:08] LABS: DEVICE PB840; FI02 100 %; SITE LR
[2016-09-25 02:31] LABS: METH RESISTANT S AUREUS PCR NEGATIVE (NEGATIVE)
[2016-09-25 02:37] LABS: PROBE CHECK PASS; SPECIMEN PROCESSING CONTROL PASS
[2016-09-25 04:37] LABS: POINT-OF-CARE METER ID UU13113731
== END 2016-09-25 20:55 | DRG 441 ==
LOC: EME → EDBD 14:58 → EDOF 17:20 → 5EAST 17:20 → 4WEST 17:20 → 5EAST 19:26 → 4WEST 09-25 00:59 → 5EAST 09-25 10:08
PROVIDERS: Emergency Medicine; Hospitalist; Internal Medicine; Internal Medicine Pulmonary Disease
PROC: 5A1935Z Respiratory Ventilation, Less than 24 Consecutive Hours (ICD-10-PCS; principal; 2016-09-25)
PROC: 0BH17EZ Insertion of Endotracheal Airway into Trachea, Via Natural or Artificial Opening (ICD-10-PCS; 2016-09-25)
PROC: 05HM33Z Insertion of Infusion Device into Right Internal Jugular Vein, Percutaneous Approach (ICD-10-PCS; 2016-09-25)
DX: K72.90 Hepatic failure, unspecified without coma (principal); J96.00 Acute respiratory failure, unspecified whether with hypoxia or hypercapnia; K76.7 Hepatorenal syndrome; J69.0 Pneumonitis due to inhalation of food and vomit; D61.818 Other pancytopenia; R18.8 Other ascites; E87.2 Acidosis; K74.69 Other cirrhosis of liver; E11.65 Type 2 diabetes mellitus with hyperglycemia; Z79.4 Long term (current) use of insulin; E66.01 Morbid (severe) obesity due to excess calories; Z68.42 Body mass index [BMI] 45.0-49.9, adult; I12.9 Hypertensive chronic kidney disease with stage 1 through stage 4 chronic kidney disease, or unspecified chronic kidney disease; E11.22 Type 2 diabetes mellitus with diabetic chronic kidney disease; N18.3 Chronic kidney disease, stage 3 (moderate); L03.116 Cellulitis of left lower limb; L03.115 Cellulitis of right lower limb; I87.8 Other specified disorders of veins; K75.81 Nonalcoholic steatohepatitis (NASH); E03.9 Hypothyroidism, unspecified; Z51.5 Encounter for palliative care; Z66 Do not resuscitate; Z91.14 Patient's other noncompliance with medication regimen; D69.6 Thrombocytopenia, unspecified
CPT/HCPCS: 36600; 71010; 80048; 80048 91; 80053; 81003; 82140; 82248; 82550; 82550 91; 82800; 82803; 82948; 83605; 84100; 84478; 84484; 85025; 85025 GA; 85027; 87040; 87070; 87077; 87186; 87205; 87641; 93005; 94799; 99202; 99281; 99285; G0378; J0295; J0360; J0696; J1644; J1650; J1815; J1940; J2060; J2250; J2270; J2704; J3370; J7050; J7512; Q0169